=== PATIENT | female | born 1995 | race African-American/Black ===

== ENCOUNTER 2023-01-23 11:01 | Day surgery (SDC) | payer OTHER ==
[~2023-01-23] VITALS: Ht 177.8 cm; Wt 66.7 kg
[2023-01-23] MEDS ORDERED: diphenhydrAMINE 50 MG/ML VIAL ONE (12:15)
[2023-01-23] MEDS ORDERED: MIDAZOLAM 5 MG/5 ML VIAL ONE (12:16)
[2023-01-23] MEDS ORDERED: fentaNYL citrate 0.05 MG/ML VIAL ONE (12:16)
[2023-01-23] MEDS ORDERED: diphenhydrAMINE 50 MG/ML VIAL IVP ONE (12:40)
[2023-01-23] MEDS ORDERED: fentaNYL citrate 0.05 MG/ML VIAL IVP ONE (12:40)
[2023-01-23] MEDS ORDERED: MIDAZOLAM 2 MG/2 ML VIAL IVP ONE (12:40)
== END 2023-01-23 13:20 | disposition home or self-care (01) ==
LOC: MDS 11:01 → MMU 11:02 → MDS 13:20
PROVIDERS: ATTEND Internal Medicine Gastroenterology
DX: R10.13 Epigastric pain (principal); K21.9 Gastro-esophageal reflux disease without esophagitis; F32.A Depression, unspecified; Z88.0 Allergy status to penicillin; J45.909 Unspecified asthma, uncomplicated; Z79.899 Other long term (current) drug therapy
CPT/HCPCS: 43239; J1200; J2250; J3010